=== PATIENT | male | born 1970 | race Caucasian/White ===

== ENCOUNTER 2016-10-07 12:39 | Emergency (ER) | payer MEDICAID, OTHER ==
[2016-10-07 12:39] VITALS: BMI 26.1
[2016-10-07 12:46] VITALS: BP 128/82; PULSE 91; RESP 19; TEMP 97.2; O2SAT 95
--- NOTE | 2016-10-07 13:02 | ED PDOC ---
Arrival/HPI - General Chief Complaint: ENT Problem Time Seen by Provider: 10/07/16 12:46 Historian: Patient, Family - History of Present Illness Narrative History of Present Illness (Text): 10/07/16 12:59 46 year old male who denies significant past medical history presents to the emergency department with sore throat for the past two days. History translated by family member. Patient reports he had a procedure done at the dentist where two "caps" were put on his two upper front teeth. Since then he reports sore throat and subjective fever. He states he can still eat and drink but it is uncomfortable. Denies cough or drooling. No other complaints at this time. PMD: Dr. Diana Zhang Time/Duration: < week Symptom Onset: Gradual Symptom Course: Unchanged Modifying Factors (Text): None Associated Symptoms (Text): None Past Medical History - Provider Review Nursing Documentation Reviewed: Yes - Infectious Disease Hx of Infectious Diseases: None - Tetanus Immunization Tetanus Immunization: Unknown - Past Medical History Past Medical History: No Previous - Psychiatric Hx Depression: No Hx Emotional Abuse: No Hx Physical Abuse: No Hx Substance Use: No - Past Surgical History Past Surgical History: No Previous - Anesthesia Hx Anesthesia: No Hx Anesthesia Reactions: No Hx Malignant Hyperthermia: No - Suicidal Assessment Feels Threatened In Home Enviroment: No Family/Social History - Physician Review Nursing Documentation Reviewed: Yes Family/Social History: Unknown Family HX Smoking Status: Never Smoked Hx Alcohol Use: No Hx Substance Use: No Allergies/Home Meds Allergies/Adverse Reactions: Allergies No Known Allergies Allergy (Verified 10/07/16 12:46) Review of Systems - Physician Review All systems were reviewed & negative as marked: Yes - Review of Systems Constitutional: Fevers (subjective) ENT: Sore Throat Respiratory: absent: Cough Cardiovascular: absent: Chest Pain Gastrointestinal: absent: Nausea, Vomiting Neurological: absent: Dizziness Physical Exam Vital Signs Reviewed: Yes Vital Signs Temp Pulse Resp BP Pulse Ox 10/07/16 12:42 97.2 F L 91 H 19 128/82 95 10/07/16 12:39 97.2 F L 91 H 19 128/82 95 Temperature: Afebrile Blood Pressure: Normal Pulse: Regular Respiratory Rate: Normal Appearance: Positive for: Well-Appearing, Non-Toxic, Comfortable Pain Distress: None Mental Status: Positive for: Alert and Oriented X 3 - Systems Exam Head: Present: Atraumatic, Normocephalic Pupils: Present: PERRL Extroacular Muscles: Present: EOMI Conjunctiva: Present: Normal Mouth: Present: Moist Mucous Membranes Pharnyx: Present: ERYTHEMA, Other (Mild tonsilar swelling, increased sensitivity to two upper front teeth, no signs of gingival swelling, bleeding, or pus). No: EXUDATE Neck: Present: Normal Range of Motion Respiratory/Chest: Present: Clear to Auscultation, Good Air Exchange. No: Respiratory Distress, Accessory Muscle Use Cardiovascular: Present: Regular Rate and Rhythm, Normal S1, S2. No: Murmurs Abdomen: Present: Normal Bowel Sounds. No: Tenderness, Distention, Peritoneal Signs Back: Present: Normal Inspection Upper Extremity: Present: Normal Inspection. No: Cyanosis, Edema Lower Extremity: Present: Normal Inspection. No: Edema Neurological: Present: GCS=15, CN II-XII Intact, Speech Normal Skin: Present: Warm, Dry, Normal Color. No: Rashes Psychiatric: Present: Alert, Oriented x 3, Normal Insight, Normal Concentration Medical Decision Making ED Course and Treatment: Impression: 46 year old male with no significant past medical history presents to the emergency department with sore throat for the past two days. Differential Diagnosis included but are not limited to: Pharyngitis Plan: -- Motrin, Penicilin -- Discharge Progress Notes: 10/07/16 13:08 Will discharge patient home with Ibuprofen and Penicilin. Instructed patient to take Ibuprofen as needed and complete the course of antibiotics. Instructions translated by family member at bedside and patient expresses understanding. Patient agrees with the plan to be discharged home. Patient is stable for discharge. Patient was instructed to follow up with PMD in 1-2 days or return if symptoms persist/worsen or new concerning symptoms arise. Patient given the opportunity to ask questions, and all questions were answered. - Medication Orders Current Medication Orders: Discontinued Medications Ibuprofen (Motrin Tab) 800 mg PO STAT STA Stop: 10/07/16 13:04 Last Admin: 10/07/16 13:20 Dose: 800 MG MAR Pain/Vitals Document 10/07/16 13:20 SRE (Rec: 10/07/16 13:20 SRE [id number]) Pain Reassessment Is This A Pain ReAssessment? Yes Sleep Is patient sleeping during reassessment? No Presence of Pain Presence of Pain Yes Pain Scale Used Pain Scale Used Numeric Location Pain Location Body Site Throat Description Throbbing Penicillin V Potassium (Penicillin Vk Tab) 500 mg PO STAT STA PRN Reason: Protocol Stop: 10/07/16 13:03 Last Admin: 10/07/16 13:19 Dose: 500 MG - Scribe Statement The provider has reviewed the documentation as recorded by the Mihir Cullen Provider Scribe Attestation: All medical record entries made by the Alfonsoibnestor were at my direction and personally dictated by me. I have reviewed the chart and agree that the record accurately reflects my personal performance of the history, physical exam, medical decision making, and the department course for this patient. I have also personally directed, reviewed, and agree with the discharge instructions and disposition. Disposition/Present on Arrival - Present on Arrival Any Indicators Present on Arrival: No History of DVT/PE: No History of Uncontrolled Diabetes: No Urinary Catheter: No History of Decub. Ulcer: No History Surgical Site Infection Following: None - Disposition Have Diagnosis and Disposition been Completed?: Yes Diagnosis: Pharyngitis Disposition: HOME/ ROUTINE Disposition Time: 01:05 Patient Plan: Discharge Patient Problems: Current Active Problems Problem Status Diagnosed Pharyngitis Acute Condition: GOOD Discharge Instructions (ExitCare): Pharyngitis (ED) Additional Instructions: Mr Riveramaria luisarose, thank you for letting us take care of you today. Your provider was Dr. Cruz. You were treated for Pharyngitis. The emergency medical care you received today was directed at your acute symptoms. If you were prescribed any medication, please fill it and take as directed. It may take several days for your symptoms to resolve. Return to the Emergency Department if your symptoms worsen, do not improve, or if you have any other problems. Please contact your doctor or call one of the physicians/clinics you have been referred to that are listed on the Patient Visit Information form that is included in your discharge packet. Bring any paperwork you were given at discharge with you along with any medications you are taking to your follow up visit. Our treatment cannot replace ongoing medical care by a primary care provider (PCP) outside of the emergency department. Thank you for allowing the [facility] team to be part of your care today. If you had an X-Ray or CT scan: A Radiologist will review the ED reading if any change in treatment is needed we will contact you. If you had a blood, urine, or wound culture: It will take several days for the results, if any change in treatment is needed we will contact you. If you had an STI test: It will take 48 hours for the results. Please call after 1 week if you have not heard back. Prescriptions: Ibuprofen [Motrin] 600 mg PO Q6 PRN #30 tab PRN Reason: Pain, Moderate (4-7) Penicillin VK [Pen-Vee K] 500 mg PO BID #20 tab Referrals: Diana Zhang MD [Medical Doctor] - Follow up with primary Forms: WORK NOTE
== END 2016-10-07 13:29 | disposition home or self-care (01) ==
LOC: ED 12:39
DX: J02.9 Acute pharyngitis, unspecified (principal)